=== PATIENT | male | born 1995 | race Caucasian/White ===

== ENCOUNTER 2018-03-02 02:30 | Emergency (ER) | payer SELFPAY ==
--- NOTE | 2018-03-02 02:35 | ED Physician Documentation ---
Fall - HISTORIAN Historian: patient - HPI Stated Complaint: laceration Chief Complaint: Fall Additional Information: intro self as [employer]. pt presents to the ED via POV c/o fall down 2-3 stairs onto concrete after drinking a few beers per pt resulting in a Left Temporal laceration. pt reports headache 07/15. pt denies LOC, other injury or complaints. pt is a/o x 3 eupneic. mildly etoh intoxicated. able to ambulate without difficulty. pt denies current chest pain, dyspnea, syncope/near syncope, headache, dizziness, visual disturbances, n/v/d, fever/chills, rash, sick contacts, dysuria, melena or hematochezia, bleeding or easy bruising, change in bowel or bladder function, no recent weight loss/gain, anxiety or depression. ROS Negative unless otherwise specified. Onset: just prior to arrival Where: home Context: other (fell down 5 stairs ) Associated Symptoms:: no loss of consciousness Location of Pain/Injury: head Injury to Right Extremity: none Injury to Left Extremity: none - ROS CONST: no problems. denies: recent illness, fever, sweating, weakness, chills NEURO: denies: dizziness, anxiety, depression MS/SKIN/LYMPH: denies: weakness, numbness, neck pain, back pain, ankle swelling, leg swelling EYES/ENT: denies: problems with vision CVS/RESP: denies: chest pain, shortness of breath, palpitations GI/: denies: problems urinating, nausea, vomiting - PAST HX Past History: none Immunizations: other (unknown) Allergies/Adverse Reactions: Allergies Allergy/AdvReac Type Severity Reaction Status Date / Time No Known Allergies Allergy Verified 03/02/18 02:47 Home Medications: Ambulatory Orders Medication Instructions Recorded NK 08/30/13 - SOCIAL HX Smoking History: less than 1 pack/day Alcohol Use: occasionally Drug Use: none - FAMILY HX Family History: none - VITAL SIGNS Vital Signs: Vital Signs Temp Pulse Resp BP Pulse Ox 116/58 01/19/16 16:49 - REVIEWED ASSESSMENTS Nursing Assessment Reviewed: Yes Vitals Reviewed: Yes Procedures Wound Location: face Wound Length: 5 cm Wound's Depth, Shape: irregular (S shaped with one flap mid lac), flap Wound Explored: clean Irrigated w/ Saline (ccs): 250 (hibacleans) Anesthesia: Lidocaine w/ Epi Volume of Anesthetic: 5 ml Wound Repaired With: sutures Suture Size/Type: 5:0 Number of Sutures: 10 Layer Closure?: No Progress: The patient was examined and found to have an uncomplicated left facial- temporal laceration requiring suturing S shaped and approx 5 cm in length. Distal NVT intact. no tendon injury. The patient was educated on the need for suturing to control the bleeding and help prevent infection. The patient consented with suturing and questions were addressed prior to the procedure. The patient's wound was cleaned by me using hibiclens and copious sterile saline. anesthetic with lidocaine 1% with epinephrine administered. wound explored to base in bloodless field no FB identified. Sterile techniques were observed and the patient received a total of #10- 5.0 nylon sutures in addition to nonadherent bandaging. bacitracin applied. The patient is discharged home in stable condition. The patient has indicated a clear understanding of the clinical findings, diagnosis, and treatment plan, and has no further questions or concerns at this time. Written instructions provided on suture instructions and s/s of infection. pt tolerated well. ED Results Lab/Radiology - Radiology Radiology Impressions: Report Submission Date: Mar 02, 2018 3:21:34 AM WELL HEAD PUMPER Patient Study Name: CONSTANTIN VEGA Date: Mar 02, 2018 2:50:30 AM WELL HEAD PUMPER Modality Type: CT\SR Gender: M Description: CT C-SPINE W/O CONTRAS : 95 Institution: [facility] Physician: CHRIS DUDLEY CT cervical spine. Date of study: 03/02/2018. CLINICAL HISTORY: 22/M FALL DOWN STAIRS TECHNIQUE: 2.5 mm contiguous axial images of the cervical spine with sagittal and coronal reconstructions. FINDINGS: The cervical spine alignment is normal. The cervical vertebral bodies are of normal height and the intervertebral disc spaces are of average width. The cervical vertebral bodies and posterior elements are intact. The spinal canal diameter is normal. There is no evidence of acute fracture or subluxation. The facets are in proper relationship bilaterally. The craniocervical and cervicothoracic junctions are normal. IMPRESSION: No evidence of acute cervical spine fracture or subluxation. Electronically signed on Mar 02, 2018 3:21:34 AM WELL HEAD PUMPER by: Danny Hong Report Submission Date: Mar 02, 2018 3:20:02 AM WELL HEAD PUMPER Patient Study Name: CONSTANTIN VEGA Date: Mar 02, 2018 2:48:03 AM WELL HEAD PUMPER Modality Type: CT\SR Gender: M Description: CT BRAIN W/O CONTRAST : 95 Institution: [facility] Physician: CHRIS DUDLEY CT brain noncontrast Date of study: 03/02/2018. CLINICAL HISTORY: 22/M FALL DOWN STAIRS TECHNIQUE: 5 mm contiguous axial images of the brain, noncontrast with sagittal and coronal multiplanar reconstructions. FINDINGS: There is no evidence of intracranial mass effect, hemorrhage, or acute infarct. The lateral ventricles are symmetrical and the 4th ventricle is midline without shift. No acute brain parenchymal changes or extra-axial fluid collections are identified. The posterior fossa contents are within normal limits. There is a left frontotemporal scalp laceration. The calvarium is intact. The visualized sinuses and mastoid air cells are clear. IMPRESSION: Left scalp laceration. No acute intracranial process. Electronically signed on Mar 02, 2018 3:20:02 AM WELL HEAD PUMPER by: Danny Baeza Physical Exam - Physical Exam General Appearance: no acute distress, alert Head: trauma (laceration to left temporal) Neck: non-tender, painless ROM, trachea midline Eye: SATISH, EOMI, lids & conjunct. nml ENT: nml external inspection, no dental injury, no oral injury, airway nml Resp/CVS: chest non-tender, no ecchymosis, breath sounds nml, no resp. distress, heart sounds nml Abdomen: soft, no organomegaly, normal bowel sounds, no abdominal bruit, no distension Neuro: oriented x3, sensation nml, motor nml, mood/affect nml, policy services representative nml, reflexes nml, policy services representative symmetrical, other (mild ETOH intox) Skin: other (laceration to the left temporal approx 5 cm. see procedure note ) Back: normal inspection, no CVA tenderness Extremities: atraumatic, pelvis stable, hips non-tender, no pedal edema, nml ROM, nml color/temp Joint: joints nml, nml ROM, Nml gait/weight bearing - Sravan Coma Score Eyes Open: Spontaneous Speech: Oriented Motor: Obeys Commands Discharge Clincal Impression: Laceration Fall Qualifiers: Encounter type: initial encounter Qualified Code(s): W19.XXXA - Unspecified fall, initial encounter Referrals: Primary Doctor,No [Primary Care Provider] - 2 Days Additional Instructions: Return to the emergency dept or to your primary care provider for suture removal in 7 days. keep covered with bandaid for 24 hours. after this you may leave open to air at night. covered during the day. after 24 hours may run water briefly over wound do not scrub, soak. do not put additional antibiotic ointment on the wound. Monitor and seek medical care for worsening symptoms or signs of infection: fever, chills, pus drainage, vomiting, increased swelling, redness, or any concern. -UNDERSTAND THAT THIS IS AN EMERGENCY EVALUATION FOR YOUR COMPLAINT TODAY AND BY NATURE IS LIMITED AND NOT A SUBSTITUTE FOR ONGOING MEDICAL CARE AND THAT EVEN THOUGH TEST RESULTS AND TREATMENT PLAN WERE EXPLAINED THERE MAY BE A NEED FOR ADDITIONAL TESTING TO FULLY DETERMINE THE EXTENT OF YOUR ILLNESS/INJURY/OR CONCERN SO YOU SHOULD CONTACT AND OR ESTABLISH WITH A PRIMARY CARE PROVIDER (OR REFERRAL DOCTOR IF APPLICABLE) FOR AN APPOINTMENT SOON POSSIBLE. Condition: Good Disposition: 01 HOME, SELF-CARE Decision to Admit: NO Date of Decison to Admit: 03/02/18 Decision Time: 04:50
[2018-03-02] MEDS ORDERED: DIPH,PERTUSS(ACELL),TET VAC/PF 0.5 ML DISP.SYRIN IM ONE (02:38)
[2018-03-02] MEDS ORDERED: LIDOCAINE HCL 1%/EPI. (1:100,000) MDV 20ML VIAL IJ STA (02:43)
--- NOTE | 2018-03-02 03:22 | Diagnostic Imaging Report ---
CHRIS DUDLEY [facility] [address] [facility] [address] [place], [place]. [address] Report Submission Date: Mar 02, 2018 3:20:02 AM MANAGER INVESTMENT Patient Study Name: CONSTANTIN VEGA Date: Mar 02, 2018 2:48:03 AM MANAGER INVESTMENT Modality Type: CT\SR Gender: M Description: CT BRAIN W/O CONTRAST : 95 Institution: [facility] Physician: CHRIS DUDLEY CT brain noncontrast Date of study: 03/02/2018. CLINICAL HISTORY: 22/M FALL DOWN STAIRS TECHNIQUE: 5 mm contiguous axial images of the brain, noncontrast with sagittal and coronal multiplanar reconstructions. FINDINGS: There is no evidence of intracranial mass effect, hemorrhage, or acute infarct. The lateral ventricles are symmetrical and the 4th ventricle is midline without shift. No acute brain parenchymal changes or extra-axial fluid collections are identified. The posterior fossa contents are within normal limits. There is a left frontotemporal scalp laceration. The calvarium is intact. The visualized sinuses and mastoid air cells are clear. IMPRESSION: Left scalp laceration. No acute intracranial process. Electronically signed on Mar 02, 2018 3:20:02 AM MANAGER INVESTMENT by: Danny LISA
--- NOTE | 2018-03-02 03:24 | Diagnostic Imaging Report ---
CHRIS DUDLEY [facility] [address] [facility] [address] [place], [place]. [address] Report Submission Date: Mar 02, 2018 3:20:02 AM BRAND ATTENDANT Patient Study Name: CONSTANTIN VEGA Date: Mar 02, 2018 2:48:03 AM BRAND ATTENDANT Modality Type: CT\SR Gender: M Description: CT BRAIN W/O CONTRAST : 95 Institution: [facility] Physician: CHRIS DUDLEY CT brain noncontrast Date of study: 03/02/2018. CLINICAL HISTORY: 22/M FALL DOWN STAIRS TECHNIQUE: 5 mm contiguous axial images of the brain, noncontrast with sagittal and coronal multiplanar reconstructions. FINDINGS: There is no evidence of intracranial mass effect, hemorrhage, or acute infarct. The lateral ventricles are symmetrical and the 4th ventricle is midline without shift. No acute brain parenchymal changes or extra-axial fluid collections are identified. The posterior fossa contents are within normal limits. There is a left frontotemporal scalp laceration. The calvarium is intact. The visualized sinuses and mastoid air cells are clear. IMPRESSION: Left scalp laceration. No acute intracranial process. Electronically signed on Mar 02, 2018 3:20:02 AM BRAND ATTENDANT by: Danny LISA
[2018-03-02 05:00] VITALS: BP 127/54
== END 2018-03-02 04:58 | disposition home or self-care (01) ==
LOC: ED 02:30
DX: S01.81XA Laceration without foreign body of other part of head, initial encounter (principal); W10.9XXA Fall (on) (from) unspecified stairs and steps, initial encounter; Y93.89 Activity, other specified; Y92.009 Unspecified place in unspecified non-institutional (private) residence as the place of occurrence of the external cause
CPT/HCPCS: 12013; 70450; 72125; 90471; 90715; 99283; 99285; J7030

== ENCOUNTER 2019-03-16 14:49 | Emergency (ER) | payer SELFPAY ==
--- NOTE | 2019-03-16 14:58 | ED Physician Documentation ---
General Adult - HISTORIAN Historian: patient - HPI Stated Complaint: nausea and vomiting with diarrhea last night Chief Complaint: Nausea,Vomiting,Diarrhea Onset: days ago (1) Timing: better Further Comments: yes (He states he had "several" episodes of vomiting and diarhhrea last night. No sick contacts. NO abdominal pain. NO fever. No nausea currently) - ROS CONST: no problems CVS/RESP: none GI/: vomiting, nausea, diarrhea. denies: abdominal pain, problems urinating MS/SKIN/LYMPH: none NEURO/PSYCH: denies: headache - PAST HX Past History: none Immunizations: UTD Allergies/Adverse Reactions: Allergies Allergy/AdvReac Type Severity Reaction Status Date / Time No Known Allergies Allergy Verified 03/16/19 15:08 Home Medications: Ambulatory Orders Medication Instructions Recorded NK 08/30/13 - SOCIAL HX Smoking History: non-smoker Alcohol Use: none Drug Use: none - FAMILY HX Family History: No - VITAL SIGNS Vital Signs: Vital Signs Temp Pulse Resp BP Pulse Ox 127/54 03/02/18 04:58 - REVIEWED ASSESSMENTS Nursing Assessment Reviewed: Yes Vitals Reviewed: Yes General Adult Physical Exam - PHYSICAL EXAM GENERAL APPEARANCE: no distress EENT: eye inspection normal, pharynx normal, no signs of dehydration NECK: normal inspection RESPIRATORY: no resp distress, chest non-tender, breath sounds normal CVS: reg rate & rhythm, heart sounds normal ABDOMEN: soft, normal bowel sounds, no distension, non-tender SKIN: warm/dry EXTREMITIES: non-tender, normal range of motion, no evidence of injury, no edema NEURO: oriented X3 Discharge Clincal Impression: Nausea & vomiting Qualifiers: Vomiting type: unspecified Vomiting Intractability: unspecified Qualified Code(s): R11.2 - Nausea with vomiting, unspecified Referrals: Primary Doctor,No [Primary Care Provider] - 2 Days Comments: 1. Increase fluids 2. [place] diet advance as tolerated 3. Zofran 4 mg take 1 by mouth every 8 hours as needed for nausea 4. See PCP In 2- 4 days if no improvement 5. Return to ER for any increased concerns Condition: Stable Disposition: 01 HOME, SELF-CARE Decision to Admit: NO Date of Decison to Admit: 03/16/19 Decision Time: 15:08
[2019-03-16 14:59] VITALS: BP 125/65
[2019-03-16 17:22] LABS: APPEARANCE,URINE CLEAR (CLEAR); COLOR,URINE YELLOW (YELLOW); OCCULT BLOOD,URINE NEGATIVE (NEGATIVE); UROBILINOGEN URINE 0.2 Eu (0.2-1.0)
== END 2019-03-16 15:14 | disposition home or self-care (01) ==
LOC: ED 14:49
DX: R11.2 Nausea with vomiting, unspecified (principal); R19.7 Diarrhea, unspecified
CPT/HCPCS: 81002; 99282; 99284